=== PATIENT | male | born 1960 | race African-American/Black ===

== ENCOUNTER 2016-08-11 10:44 | Emergency (ER) | payer OTHER ==
[~2016-08-11] VITALS: Ht 177.8 cm; Wt 68.0 kg
[~2016-08-11 10:44] MED LIST: ACETAMINOPHEN-1 EAC1 ORAL; CIPRO500 MG PO; CYCLOBENZAPRINE10 MG ORAL; IBUPROFEN600 MG ORAL; SYNTHROID125 MCG ORAL; TAMSULOSIN HCL0.4 MG ORAL
[2016-08-11] MEDS ORDERED: CYCLOBENZAPRINE10 MG ORAL (12:04)
[2016-08-11] MEDS ORDERED: IBUPROFEN600 MG ORAL (12:04)
[2016-08-11] MEDS ORDERED: TRIAMCINOLONE A15 GM TP (12:04)
[2016-08-11 12:28] VITALS: BP 107/70
--- NOTE | 2016-08-11 14:42 | Emergency Room Report ---
History of Present Illness General Chief Complaint: Pain Source: Patient Present Illness HPI 55-year-old male presents to ED for evaluation. Patient is complaining of left shoulder pain since yesterday. Notes pain and left shoulder and to the left side of ribs radiating to the back. Pain as throbbing, 7/10, worse with moving and raising his shoulder. Denies any chest pain or shortness of breath. Patient is also complaining of a rash to his rectal area for many years now. States that he was previously prescribed zinc cream and states that it never helps. States it is itchy. Denies any pain. Denies any fevers or chills. Denies any sick contacts or recent travel. No other aggravating or relieving factors. Denies any other associated symptom Allergies: Coded Allergies: No Known Allergies (Unverified , 11/19/15) Patient History Past Medical History: psych hx Past Surgical History: georgiana Pertinent Family History: none Social History: Denies: alcohol use, drug use, smoking Immunizations: UTD Reviewed Nursing Documentation: PMH: Agreed, PSxH: Agreed Nursing Documentation-PM Past Medical History: No History, Except For Hx Diabetes: Yes - hypothyroidsm Hx Gastrointestinal Problems: Yes - remove gallbladder due to stone 2014 History Of Psychiatric Problem: Yes - Anxiety Review of Systems All Other Systems: negative except mentioned in HPI Physical Exam Vital Signs Date Time Temp Pulse Resp B/P Pulse Ox O2 Delivery O2 Flow Rate FiO2 08/11/16 10:59 97.9 69 16 106/71 98 Room Air Sp02 EP Interpretation: reviewed, normal General Appearance: no apparent distress, alert, GCS 15, non-toxic Head: normocephalic Eyes: bilateral eye PERRL, bilateral eye normal inspection ENT: normal ENT inspection Neck: normal inspection Respiratory: lungs clear, normal breath sounds, speaking full sentences, other - L psoterior rib pain Cardiovascular #1: regular rate, rhythm, no edema Gastrointestinal: normal bowel sounds, non tender, soft, non-distended, no guarding, no rebound Rectal: deferred Genitourinary: no CVA tenderness Musculoskeletal: normal inspection, tender - L shoudler Neurologic: alert, oriented x3, responsive, motor strength/tone normal, sensory intact, speech normal Psychiatric: normal inspection Skin: other - rash to rectal area. desquamation of skin. no erythema/induration Lymphatic: normal inspection Medical Decision Making Diagnostic Impression: Primary Impression: Dermatitis Additional Impression: Muscle strain ER Course Hospital Course 55-year-old male presents to ED with rash to rectal area, left shoulder pain Differential diagnoses include: Cellulitis, dermatitis, insect bite, abscess Clinical course Patient placed on stretcher. After initial history, physical exam reveals a male in no acute distress. On exam there is reproducible pain to the L shoulder and L rib area. no evidence of trauma. pain is likely muscular EKG was performed and shows no ischemic changes, normal sinus rhythm on rectal exam there is desquamation of skin surronding the rectal area. no induration/erythema Diagnosis - dermatits, muscle strain stable and discharged to home with prescription for motrin, flexeril, triamcinolone. Instructed to followup with PMD. Instructed return to ED if symptoms recur or worsen EKG Diagnostic Results Rate: normal Rhythm: NSR ST Segments: no acute changes ASA given to the pt in ED: No Rhythm Strip Diag. Results EP Interpretation: yes Rhythm: NSR, no PVC's, no ectopy Last Vital Signs Date Time Temp Pulse Resp B/P Pulse Ox O2 Delivery O2 Flow Rate FiO2 08/11/16 12:28 97.7 64 18 107/70 98 Room Air Status: improved Disposition: HOME, SELF-CARE Condition: Stable Scripts Triamcinolone Acetonide (TRIAMCINOLONE ACETONIDE) 15 Gm Cream..g. 15 GM TP BID, #15 GM Prov: KENDALL HAWTHORNE M.D. 08/11/16 Cyclobenzaprine Hcl* (FLEXERIL*) 10 Mg Tablet 10 MG ORAL TID Y for Muscle Spasm, #20 TAB Prov: KENDALL HAWTHORNE M.D. 08/11/16 Ibuprofen* (MOTRIN*) 600 Mg Tablet 600 MG ORAL Q8H Y for For Pain, #30 TAB 0 Refills Prov: KENDALL HAWTHORNE M.D. 08/11/16 Patient Instructions: Muscle Strain, [id number] KENDALL HAWTHORNE M.D. Aug 11, 2016 14:42
== END 2016-08-11 12:28 | disposition home or self-care (01) ==
LOC: EMR 11:20
DX: L30.9 Dermatitis, unspecified (principal); S46.912A Strain of unspecified muscle, fascia and tendon at shoulder and upper arm level, left arm, initial encounter; X58.XXXA Exposure to other specified factors, initial encounter; Y93.9 Activity, unspecified; Y92.9 Unspecified place or not applicable; Z90.49 Acquired absence of other specified parts of digestive tract; Z86.59 Personal history of other mental and behavioral disorders; E11.9 Type 2 diabetes mellitus without complications
CPT/HCPCS: 99284

== ENCOUNTER 2017-04-12 15:15 | Emergency (ER) | payer OTHER ==
[~2017-04-12] VITALS: Ht 180.3 cm; Wt 68.0 kg
[~2017-04-12 15:15] MED LIST changes: +TRIAMCINOLONE A15 GM TP
[2017-04-12 15:30] VITALS: BP 133/85
[2017-04-12] MEDS ORDERED: DEBROX15 M1 BOTH EARS (15:48)
[2017-04-12 16:00] VITALS: BP 133/85
--- NOTE | 2017-04-12 16:29 | Emergency Room Report ---
History of Present Illness General Chief Complaint: General Complaint Source: Patient Present Illness HPI 56-year-old male presents ED for evaluation. States that since Tuesday he's been having difficulty with his hearing. Believes everything feels muffled and/ or hypersensitive. Feels pressure. Denies any pain. Denies any headache or blurry vision. Denies nausea or vomiting. Denies neck stiffness. Denies fevers chills. 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 No other aggravating relieving factors. Denies any other associated symptoms Allergies: Coded Allergies: No Known Allergies (Unverified , 11/19/15) Patient History Past Medical History: none Past Surgical History: georgiana Pertinent Family History: none Social History: Denies: smoking, alcohol use, drug use Immunizations: UTD Reviewed Nursing Documentation: PMH: Agreed, PSxH: Agreed Nursing Documentation-PMH Hx COPD: Yes - 2017 Hx Diabetes: Yes - hypothyroidsm Hx Gastrointestinal Problems: Yes - Cholecystectomy Review of Systems All Other Systems: negative except mentioned in HPI Physical Exam Vital Signs Date Time Temp Pulse Resp B/P (MAP) Pulse Ox O2 Delivery O2 Flow Rate FiO2 04/12/17 15:22 98.2 59 17 118/73 98 Room Air Sp02 EP Interpretation: reviewed, normal General Appearance: no apparent distress, alert, GCS 15, non-toxic Head: normocephalic Eyes: bilateral eye normal inspection, bilateral eye PERRL ENT: hearing grossly normal, normal pharynx, normal voice, other - bilateral ear canal with cerumen impaction. unable to visualize TM Neck: full range of motion, supple, supple/symm/no masses Respiratory: normal inspection Cardiovascular #1: normal inspection Gastrointestinal: normal inspection Rectal: deferred Genitourinary: no CVA tenderness Musculoskeletal: normal inspection Neurologic: alert, oriented x3, responsive, motor strength/tone normal, sensory intact, speech normal Psychiatric: normal inspection Skin: normal inspection Lymphatic: normal inspection Medical Decision Making Diagnostic Impression: Primary Impression: Impacted cerumen Qualified Codes: H61.23 - Impacted cerumen, bilateral ER Course Hospital Course 56-year-old male presents to ED with difficulty hearing, pressure sensation Differential diagnoses include: TM perforation, otitis externa, otitis media, vestibulitis/labryntitis Clinical course Patient placed on stretcher. After initial history, physical exam reveals a middle aged male in no acute distress. There is significant cerumen impaction in both ears. Unable to visualize TM bilaterally I did offer patient options for irrigation of the ear canals. Patient states he would prefer to use ear drops instead Diagnosis - cerumen impaction Stable and discharged to home with Rx Debrox. Followup with PMD/ENT. Return to ED if symptoms recur or worsen Last Vital Signs Date Time Temp Pulse Resp B/P (MAP) Pulse Ox O2 Delivery O2 Flow Rate FiO2 04/12/17 16:00 98.2 57 16 133/85 100 Room Air Status: improved Disposition: HOME, SELF-CARE Condition: Stable Scripts Carbamide Peroxide (DEBROX) 15 Ml Drops 5 DROP BOTH EARS TWICE A DAY for 4 Days, ML 0 Refills Prov: KENDALL HAWTHORNE M.D. 04/12/17 [facility]errals: [facility] ([facility]P) Patient Instructions: Cerumen Impaction KENDALL HAWTHORNE M.D. Apr 12, 2017 16:29
== END 2017-04-12 16:00 | disposition home or self-care (01) ==
LOC: EMR 15:45
DX: H61.23 Impacted cerumen, bilateral (principal); E11.9 Type 2 diabetes mellitus without complications; J44.9 Chronic obstructive pulmonary disease, unspecified
CPT/HCPCS: 99283

== ENCOUNTER 2017-07-12 15:57 | Emergency (ER) | payer OTHER ==
[~2017-07-12] VITALS: Ht 180.3 cm; Wt 68.0 kg
[~2017-07-12 15:57] MED LIST changes: +DEBROX15 M1 BOTH EARS
[2017-07-12 16:50] VITALS: BP 124/70
--- NOTE | 2017-07-12 17:16 | Emergency Room Report ---
History of Present Illness General Chief Complaint: Sore Throat Present Illness HPI 56 Y/O Male Presents to the ED C/O swelling of the left cheek intermittently x 2 weeks. Reports 8/10 in severity discomfort due to swelling but denies pain. Denies fevers, chills, swollen tonsils. Denies pain with swallowing. Patient states that he noticed increased size after eating. Swelling is localized to the left inner cheek. pt. denies recent illness or URI. denies neck pain or stiffness. Denies CP, Palpitations, LOC, AMS, dizziness, Changes in Vision, Sensation, paresthesias, or a sudden severe headache. Allergies: Coded Allergies: No Known Allergies (Unverified , 11/19/15) Patient History Past Medical History: see triage record Past Surgical History: none Pertinent Family History: none Reviewed Nursing Documentation: PMH: Agreed, PSxH: Agreed Nursing Documentation-PMH Hx COPD: Yes - 2017 Hx Diabetes: Yes - hypothyroidsm Hx Gastrointestinal Problems: Yes - Cholecystectomy Review of Systems All Other Systems: negative except mentioned in HPI Physical Exam Vital Signs Date Time Temp Pulse Resp B/P (MAP) Pulse Ox O2 Delivery O2 Flow Rate FiO2 07/12/17 16:02 98.1 58 20 120/72 99 Room Air Sp02 EP Interpretation: reviewed, normal General Appearance: no apparent distress, alert, GCS 15, non-toxic Head: normocephalic, atraumatic Eyes: bilateral eye normal inspection, bilateral eye PERRL ENT: hearing grossly normal, normal pharynx, no angioedema, normal voice, TMs + canals normal, moist mucus membranes, other - Left salivary gland swelling, no erythema , non tender. Neck: full range of motion, no meningismus, no bony tend Respiratory: lungs clear, normal breath sounds, speaking full sentences Cardiovascular #1: regular rate, rhythm Rectal: deferred Genitourinary: normal inspection Musculoskeletal: back normal, gait/station normal, normal range of motion Neurologic: alert, oriented x3, responsive, motor strength/tone normal, sensory intact, speech normal, grossly normal Psychiatric: judgement/insight normal Skin: normal color, no rash, warm/dry, well hydrated Lymphatic: no adenopathy Medical Decision Making PA Attestation Dr. Ruvalcaba is my supervising Physician whom patient management has been discussed with. Diagnostic Impression: Primary Impression: Sialolithiasis, ductal ER Course 56 Y/O Male Presents to the ED C/O swelling of the left cheek intermittently x 2 weeks. Reports 8/10 in severity discomfort due to swelling but denies pain. Denies fevers, chills, swollen tonsils. Denies pain with swallowing. Patient states that he noticed increased size after eating. Swelling is localized to the left inner cheek. pt. denies recent illness or URI. denies neck pain or stiffness. Denies CP, Palpitations, LOC, AMS, dizziness, Changes in Vision, Sensation, paresthesias, or a sudden severe headache. Ddx considered but are not limited to: Sialolith, parotitis, , dental abscess, MOLDER WAX BALL, tonsiliths just to name a few. Vital signs: are WNL, pt. is afebrile H&PE are most consistent with Salivary duct obstruction/stone. Left salivary gland swelling, no erythema , non tender bimanual exam. no LAD, TM and Canal Normal, FROM of neck. ORDERS: none required at this time, the diagnosis is clinical ED INTERVENTIONS: None required at this time. -I do not identify an emergent condition at this time. With current presentation , pt. is stable for close outpatient follow up and conservative treatment. D/ w pt. to return promptly to ED with worsening or new symptoms.- Pt. (and or responsible alliance party) verbalizes' understanding and agreement with proposed treatment plan.proposed treatment plan. DISCHARGE: At this time pt. is stable for d/c to home. Will provide printed patient care instructions, and any necessary prescriptions. Care plan and follow up instructions have been discussed with the patient prior to discharge. Last Vital Signs Date Time Temp Pulse Resp B/P (MAP) Pulse Ox O2 Delivery O2 Flow Rate FiO2 07/12/17 16:50 77 20 124/70 99 Room Air 07/12/17 16:02 98.1 Disposition: HOME, SELF-CARE Condition: Stable Scripts Ibuprofen* (MOTRIN*) 600 Mg Tablet 600 MG ORAL THREE TIMES A DAY, #15 TAB 0 Refills Prov: Dafne Nye P.A. 07/12/17 Cephalexin* (KEFLEX*) 500 Mg Capsule 500 MG ORAL EVERY 12 HOURS for 7 Days, #14 CAP 0 Refills Prov: Dafne Nye P.A. 07/12/17 Patient Instructions: Salivary Stone Additional Instructions: Take medications as directed. Follow up with a Primary Care Provider in 3-5 days, even if your symptoms have resolved. --Please review list of primary care clinics, if you do not already have a primary care provider Return sooner to ED if new symptoms occur, or current symptoms become worse. - Please note that this Emergency Department Report was dictated using [employer] safety engineer technology software, occasionally this can lead to erroneous entry secondary to interpretation by the dictation equipment. Dafne Nye Jul 12, 2017 17:16
[2017-07-12] MEDS ORDERED: CEPHALEXIN500 MG ORAL (17:17)
[2017-07-12] MEDS ORDERED: IBUPROFEN600 MG ORAL (17:17)
[2017-07-12 17:29] VITALS: BP 124/70
== END 2017-07-12 17:40 | disposition home or self-care (01) ==
LOC: EMR 16:45
DX: K11.5 Sialolithiasis (principal); E11.9 Type 2 diabetes mellitus without complications; E03.9 Hypothyroidism, unspecified; J44.9 Chronic obstructive pulmonary disease, unspecified
CPT/HCPCS: 99283

== ENCOUNTER 2018-05-10 15:58 | Emergency (ER) | payer OTHER ==
[~2018-05-10] VITALS: Ht 180.3 cm; Wt 74.8 kg
[~2018-05-10 15:58] MED LIST changes: +CEPHALEXIN500 MG ORAL
--- NOTE | 2018-05-10 16:19 | Emergency Room Report ---
History of Present Illness General Chief Complaint: Eye Problems Source: Patient Present Illness HPI 57-year-old male patient presents ER complaining of left eye pain for the past day. Reports symptoms began yesterday, reports pain symptoms wax and wane in intensity. Denies fever, chest pain, shortness of breath. Denies vision changes. Denies photophobia or phonophobia. Denies eye crusting or itchiness. Denies curtain coming down over field of vision, denies andrade in visual field. denies history of glaucoma, reports family history of glaucoma. denies foreign body sensation. Denies wearing contact lenses, denies wearing glasses normally, states he is beginning to glasses for reading. denies history diabetes. reports history of sinus problems in the past, reports nasal congestion during this time. denies headache. Allergies: Coded Allergies: No Known Allergies (Unverified , 11/19/15) Patient History Past Medical History: see triage record Reviewed Nursing Documentation: PMH: Agreed; PSxH: Agreed Nursing Documentation-PMH Past Medical History: No History, Except For Hx COPD: Yes - 2016 Hx Diabetes: Yes - hypothyroidsm Hx Gastrointestinal Problems: Yes - Cholecystectomy Review of Systems All Other Systems: negative except mentioned in HPI Physical Exam Vital Signs Date Time Temp Pulse Resp B/P (MAP) Pulse Ox O2 Delivery O2 Flow Rate FiO2 05/10/18 16:04 98.6 68 20 118/75 95 Room Air Sp02 EP Interpretation: reviewed, normal General Appearance: well appearing, no apparent distress, alert, GCS 15, non- toxic Head: normocephalic, atraumatic Eyes: bilateral eye normal inspection, bilateral eye PERRL, bilateral eye EOMI , bilateral eye other - no rest ring, negative Siedel sign, no fluorescein uptake, no dendritic lesions, no conjunctival injection ENT: hearing grossly normal, normal pharynx, no angioedema, normal voice, TMs + canals normal, uvula midline, moist mucus membranes Neck: full range of motion Respiratory: lungs clear, normal breath sounds, no rhonchi, no respiratory distress, no accessory muscle use, no wheezing, speaking full sentences Cardiovascular #1: regular rate, rhythm, no edema Cardiovascular #2: 2+ radial (R), 2+ radial (L) Musculoskeletal: back normal, digits/nails normal, gait/station normal, normal range of motion, non-tender Neurologic: alert, oriented x3, responsive, motor strength/tone normal, sensory intact Psychiatric: mood/affect normal Skin: no rash Medical Decision Making PA Attestation Dr. Otto is my supervising Physician whom patient management has been discussed with. Diagnostic Impression: Primary Impression: Left eye pain ER Course Pt. presents to the ED c/o left eye pain. Ddx considered but are not limited to allergic conjunctivitis, viral conjunctivitis, bacterial conjunctivitis, periorbital cellulitis, URI, sinusitis , keratitis, glaucoma, cluster headache. No reduction in VA, no cilliary flush, no photophobia, no FB sensation, no corneal opacity, low suspicion for keratitis, iritis. No FIGUEROA, no vomiting, no fixed pupil, no reduction of VA, no ciliary flush, low suspicion for angle closure glaucoma. no surrounding erythema or edema, no pain with movement, low suspicion for preseptal cellulitis, does not require antibiotics at this time, does not require imaging at this time. See nurses note for visual acuity. Vital signs: are WNL, pt. is afebrile ER COURSE: physical exam shows no conjunctival injection, no crusting, low suspicion for conjunctivitis. fluorescein uptake shows no abrasion, no rust ring, negative Joy sign, no dendritic lesions intraocular pressure left eye averaged over 3 tries is 17 mmHg, no fixed pupil, low suspicion for glaucoma Will provide patient with Opcon-A eyedrops, does not believe patient requires antibiotic coverage at this time. Pain symptoms likely related to allergy symptoms. Will provide patient with Claritin D for sinus symptoms. F/u with ophthalmology. F/u with sr. director. May return to school after 24 hours of treatment completed. DISCHARGE: Rx provided for Claritin-D Rx provided for Naphcon-A At this time pt. is stable for d/c to home. Patient is resting comfortably, in no acute distress, nontoxic appearing, talking and smilng without difficulty. Will provide printed patient care instructions, and any necessary prescriptions. Patient instructed to follow up with chuck wagon cook and discuss further follow up with ophthamology and sr. director. Care plan and follow up instructions have been discussed with the patient prior to discharge. Patient questions asked and answered. Patient reports understanding and agreement to treatment plan. ER precautions given. Patient instructed to return to ER immediately for any new or worsening of symptoms including but not limited to vision loss, fever, changes in vision. - Please note that this Emergency Department Report was dictated using [employer] pitcher technology software, occasionally this can lead to erroneous entry secondary to interpretation by the dictation equipment. Last Vital Signs Date Time Temp Pulse Resp B/P (MAP) Pulse Ox O2 Delivery O2 Flow Rate FiO2 05/10/18 16:04 98.6 68 20 118/75 95 Room Air Status: improved Disposition: HOME, SELF-CARE Condition: Stable Scripts Loratadine/Pseudoephedrine (CLARITIN-D 12 HOUR TABLET) 1 Each Tab.er.12h 1 TAB ORAL EVERY 12 HOURS, #24 TAB Prov: Marky Steel 05/10/18 Naphazoline Hcl/Pheniramine (OPCON-A EYE DROPS) 15 Ml Drops 15 ML OP BID, #15 ML Prov: Marky Steel 05/10/18 Patient Instructions: Sinusitis, Adult, [id number], Viral Conjunctivitis Additional Instructions: Followup with primary care provider in 1-2 days Following with sr. director and supervisor slitting and shipping. If unable to be seen by them, follow-up with [facility]. Take medications as directed. Patient questions asked and answered. ER precautions given, patient instructed to return to ER immediately for any new or worsening of symptoms. Marky Steel May 10, 2018 16:19
[2018-05-10] MEDS ORDERED: Fluorescein Strips LEFT EYE ONE (16:30)
[2018-05-10] MEDS ORDERED: Tetracaine 0.5% Opth 4ml Soln LEFT EYE ONE (16:30)
[2018-05-10] MEDS ORDERED: CLARITIN-D 121 EAC1 ORAL (17:11)
[2018-05-10] MEDS ORDERED: OPCON-A EYE DRO15 ML OP (17:11)
[2018-05-10 17:15] VITALS: BP_SYST 115; BP_SYST 121; BP_DIAS 74; BP_DIAS 79
[2018-05-10 17:16] VITALS: BP 115/74
== END 2018-05-10 17:20 | disposition home or self-care (01) ==
LOC: EMR 17:11
DX: H57.12 Ocular pain, left eye (principal); J44.9 Chronic obstructive pulmonary disease, unspecified; E11.9 Type 2 diabetes mellitus without complications; E03.9 Hypothyroidism, unspecified; Z90.49 Acquired absence of other specified parts of digestive tract
CPT/HCPCS: 99282

== ENCOUNTER 2018-06-23 14:16 | Emergency (ER) | payer OTHER ==
[~2018-06-23] VITALS: Ht 177.8 cm; Wt 72.6 kg
[~2018-06-23 14:16] MED LIST changes: +CLARITIN-D 121 EAC1 ORAL; +OPCON-A EYE DRO15 ML OP
[2018-06-23] MEDS ORDERED: Acetaminophen 500mg (ES) tab PO ONE (15:00)
[2018-06-23] MEDS ORDERED: LIDODERM700 M1 TOPIC (15:20)
[2018-06-23] MEDS ORDERED: TYLENOL EXTRA500 MG ORAL (15:20)
--- NOTE | 2018-06-23 15:31 | Diagnostic Imaging Report ---
Indication: Back pain Comparison: None Findings: 2 views of the thoracic spine were obtained. Bones are osteopenic. There is generalized loss of height of several thoracic vertebral bodies throughout the thoracic spine. Superimposed degenerative endplate spurs noted. No soft tissue swelling identified. IMPRESSION: Mild multilevel age indeterminate compression fracture deformities of thoracic vertebra. Generalized osteopenia. Superimposed degenerative changes.
[2018-06-23 15:40] VITALS: BP 118/60
--- NOTE | 2018-06-23 15:52 | Emergency Room Report ---
History of Present Illness General Chief Complaint: Back Pain-No Injury Source: Patient, Medical Record Present Illness HPI 57-year-old male presents ED for evaluation. Walked in the ED complaining of back pain. Notes pain to his mid upper back. Has been there for several months now. States that his PMD prescribed him topical medications without significant relief. He asked his PMD to x-ray his upper back but they did not. Pain is throbbing, 8 out of 10, nonradiating. Denies chest pain. Denies shortness of breath. Denies any recent injury. No other aggravating relieving factors. Denies any other associated symptoms Allergies: Coded Allergies: No Known Allergies (Unverified , 06/23/18) Patient History Past Surgical History: ge[place]iana Pertinent Family History: none Social History: Denies: smoking, alcohol use, drug use Immunizations: UTD Reviewed Nursing Documentation: PMH: Agreed; PSxH: Agreed Nursing Documentation-PMH Hx COPD: Yes - 2017 Hx Diabetes: No - hypothyroidsm Hx Gastrointestinal Problems: Yes - Cholecystectomy Review of Systems All Other Systems: negative except mentioned in HPI Physical Exam Vital Signs Date Time Temp Pulse Resp B/P (MAP) Pulse Ox O2 Delivery O2 Flow Rate FiO2 06/23/18 14:23 99.0 66 18 112/58 100 Room Air Sp02 EP Interpretation: reviewed, normal General Appearance: no apparent distress, alert, GCS 15, non-toxic Head: normocephalic Eyes: bilateral eye normal inspection, bilateral eye PERRL ENT: normal ENT inspection Neck: normal inspection Respiratory: normal inspection Cardiovascular #1: normal inspection Gastrointestinal: normal inspection Rectal: deferred Genitourinary: no CVA tenderness, vertebral tenderness - T spine Musculoskeletal: normal inspection Neurologic: alert, oriented x3, responsive, motor strength/tone normal, sensory intact, speech normal Psychiatric: normal inspection Skin: normal inspection Lymphatic: normal inspection Medical Decision Making Diagnostic Impression: Primary Impression: Back pain Qualified Codes: M54.6 - Pain in thoracic spine; G89.29 - Other chronic pain ER Course Hospital Course 57-year-old M presents to ED complaining of upper back pain for months Differential diagnoses include: Fracture, dislocation, sprain, contusion Clinical course Patient placed on stretcher. After initial history and physical, I ordered pain medications and Xrays of T spine Xrays show multilevel degenerrative changes, some comrpession deformities. Discussed findings with patient. We'll discharged home with pain medications. Patient states he'll follow-up with his PMD Diagnosis - back pain Stable and discharged to home with prescription for tylenol, lidoderm. weight bear as tolerated. Followup with PMD. Return to ED if symptoms recur or worsen Other X-Ray Diagnostic Results Other X-Ray Diagnostic Results : X-Ray ordered: T spine # of Views/Limited Vs Complete: 2 View Indication: Pain EP Interpretation: Yes Interpretation: no dislocation, no soft tissue swelling Impression: Other - Mild multilevel age indeterminate compression fracture deformities of thoracic Electronically Signed by: Electronically signed by Warner Henriquez MD Last Vital Signs Date Time Temp Pulse Resp B/P (MAP) Pulse Ox O2 Delivery O2 Flow Rate FiO2 06/23/18 14:23 99.0 66 18 112/58 100 Room Air Status: improved Disposition: HOME, SELF-CARE Condition: Stable Scripts Lidocaine (Lidoderm) 1 Each Adh..patch 1 PATCH TOPIC DAILY, #7 PATCH 0 Refills Patch(es) may remain in place for up to 12 hours in any 24-hour period. Prov: Warner Henriquez MD 06/23/18 Acetaminophen* (TYLENOL EXTRA STRENGTH*) 500 Mg Tablet 500 MG ORAL Q8H PRN for Prn Headache/Temp > 101, #30 TAB 0 Refills Prov: Warner Henriquez MD 06/23/18 Patient Instructions: Back Pain, Adult Warner Henriquez MD Jun 23, 2018 15:52
== END 2018-06-23 15:40 | disposition home or self-care (01) ==
LOC: EMR 15:01
DX: M54.6 Pain in thoracic spine (principal); M85.88 Other specified disorders of bone density and structure, other site; J44.9 Chronic obstructive pulmonary disease, unspecified; Z90.49 Acquired absence of other specified parts of digestive tract
CPT/HCPCS: 72070; 99283

== ENCOUNTER 2019-08-02 16:43 | Emergency (ER) | payer OTHER ==
[~2019-08-02] VITALS: Ht 180.3 cm; Wt 68.0 kg
[~2019-08-02 16:43] MED LIST changes: +LIDODERM700 M1 TOPIC; +TYLENOL EXTRA500 MG ORAL
--- NOTE | 2019-08-02 17:20 | Emergency Room Report ---
History of Present Illness General Chief Complaint: Pain Source: Patient Present Illness HPI Disclaimer: Please note that this report is being documented using [employer] technology. This can lead to erroneous entry secondary to incorrect interpretation by the dictating instrument. HPI: 58-year-old male presents for evaluation of left heel pain. Symptoms present for 2 days. Cannot recall specific injury though notes significant pain while walking. 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 No prior history of foot injury or pain. He notes pain mostly in the left heel that radiates up to the forefoot. Denies pain over the dorsal aspect of the foot or in the ankle or knee. Has not taken any medications prior to arrival. Denies limitation to range of motion. Pain is relieved by rest. Allergies: Coded Allergies: No Known Allergies (Unverified , 06/23/18) Nursing Documentation-PMH Hx COPD: Yes - 2017 Hx Diabetes: No - hypothyroidsm Hx Gastrointestinal Problems: Yes - Cholecystectomy Review of Systems All Other Systems: negative except mentioned in HPI Physical Exam Vital Signs Date Time Temp Pulse Resp B/P (MAP) Pulse Ox O2 Delivery O2 Flow Rate FiO2 08/02/19 16:57 98.2 60 15 110/74 (86) 98 Room Air General: Awake and alert, no acute distress HEENT: NC/AT. EOMI. Resp: Normal work of breathing Skin: Intact. No abrasions, laceration or rash over the exposed skin MSK: Normal tone and bulk. Moving all extremities. No obvious deformity. No tenderness palpation over the posterior aspects of the medial or lateral malleolus. No midfoot tenderness. Moving all digits on the left foot. Able to plantarflex and dorsiflex, invert and caitie the foot without difficulty. No obvious edema. There is tenderness palpation over the calcaneus without deformity or edema. No tenderness over the plantar aspect of the foot over the distal portions. Neuro: Awake and alert. Mentating appropriately Medical Decision Making Diagnostic Impression: Primary Impression: Plantar fasciitis of left foot ER Course 58-year-old male presents for evaluation of left heel pain. Differential includes was not limited to hairline fracture, occult injury, plantar fasciitis , strain, sprain. X-ray was obtained to rule out fracture and does not find any evidence of fracture, dislocation or other pathology. Believe is likely plantar fasciitis given his symptoms and presentation today. Will treat with Bernadette ice, rest and stretching exercises. And follow-up with his PMD. He understands and agrees with this treatment plan will be discharged. Other X-Ray Diagnostic Results Other X-Ray Diagnostic Results : X-Ray ordered: Left foot # of Views/Limited Vs Complete: 3 View Indication: Pain EP Interpretation: Yes Interpretation: no dislocation, no soft tissue swelling, no fractures Impression: No acute disease Electronically Signed by: Electronically signed by Dr. Linwood Nicole Last Vital Signs Date Time Temp Pulse Resp B/P (MAP) Pulse Ox O2 Delivery O2 Flow Rate FiO2 08/02/19 16:57 98.2 60 15 110/74 (86) 98 Room Air Reevaluation Impression No evidence of bone spur or acute bony injury appreciated on x-rays. Patient's history is most consistent with a plantar fasciitis and will discharge on Naprosyn and provide stretching exercises. He will be referred to orthopedic surgery clinic as well and back to his PMD. Discussed reasons to return to the emergency department. He understands and agrees with treatment plan. Disposition: HOME, SELF-CARE Condition: Stable Scripts Naproxen* (NAPROXEN*) 500 Mg Tablet 500 MG ORAL TWICE A WEEK, #60 TAB 0 Refills Prov: Linwood Nicole MD 08/02/19 Linwood Nicole MD Aug 02, 2019 17:20
[2019-08-02 17:31] VITALS: BP 110/74
--- NOTE | 2019-08-02 17:32 | NUR ---
ED Nurse Note:pt. came with left foot pain no injury reported
[2019-08-02] MEDS ORDERED: NAPROXEN500 M2 ORAL (17:44)
[2019-08-02 17:49] VITALS: BP 110/74
--- NOTE | 2019-08-03 09:22 | Diagnostic Imaging Report ---
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 No acute fractures. No dislocations. Joint spaces are preserved Impression: Negative
== END 2019-08-02 17:49 | disposition home or self-care (01) ==
LOC: EMR 17:37
DX: M72.2 Plantar fascial fibromatosis (principal); J44.9 Chronic obstructive pulmonary disease, unspecified; E03.9 Hypothyroidism, unspecified; Z90.49 Acquired absence of other specified parts of digestive tract
CPT/HCPCS: 73630; Z7502; 99283

== ENCOUNTER 2020-05-25 16:11 | Emergency (ER) | payer OTHER ==
[~2020-05-25] VITALS: Ht 180.3 cm; Wt 68.0 kg
[~2020-05-25 16:11] MED LIST changes: +NAPROXEN500 M2 ORAL
[2020-05-25 16:32] VITALS: BP 129/81
--- NOTE | 2020-05-25 17:57 | Emergency Room Report ---
History of Present Illness General Chief Complaint: Earache Source: Patient Present Illness HPI 59-year-old male presents to the emergency department complaining of 6 out of 10 severity progressive left ear pain x1 week. Patient reports today he did notice some swelling in the area just in front of the ear. Patient reports he has no changes in hearing. Patient states he attempted to use Q-tips with no relief. He denies fevers or chills. He denies notable discharge. He reports pain is exacerbated upon palpation of the left ear. He also reports is exacerbated if he tries to sleep on that side. He denies erythema or warmth. Denies headache, dizziness or visual changes. Denies neck pain or sore throat. 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 COVID-19 Screening: Negative COVID-19 COVID-19 Testing Source: few months ago Patient History Past Medical History: see triage record Past Surgical History: none Pertinent Family History: none Reviewed Nursing Documentation: PMH: Agreed; PSxH: Agreed Nursing Documentation-PMH Past Medical History: No History, Except For Hx COPD: Yes Hx Diabetes: No - hypothyroidsm Hx Gastrointestinal Problems: Yes - Cholecystectomy, gastritis Review of Systems All Other Systems: negative except mentioned in HPI Physical Exam Vital Signs Date Time Temp Pulse Resp B/P (MAP) Pulse Ox O2 Delivery O2 Flow Rate FiO2 05/25/20 16:15 97.9 79 20 129/81 (97) 97 Room Air Sp02 EP Interpretation: reviewed, normal General Appearance: no apparent distress, alert, GCS 15, non-toxic Head: normocephalic, atraumatic Eyes: bilateral eye normal inspection, bilateral eye PERRL ENT: hearing grossly normal, normal voice, other - left ear with external ear tenderness and some preauricular swelling. There is excessive cerumen noted as well as canal swelling/maceration. unable to visualize the TM. No evidence of mastoiditis Neck: full range of motion Respiratory: lungs clear, normal breath sounds, speaking full sentences Cardiovascular #1: regular rate, rhythm Musculoskeletal: normal range of motion, gait/station normal, non-tender Neurologic: alert, motor strength/tone normal, oriented x3, sensory intact, responsive, speech normal Psychiatric: judgement/insight normal Skin: no rash, normal color Medical Decision Making PA Attestation Dr. Ruvalcaba is my supervising Physician whom patient management has been discussed with. Diagnostic Impression: Primary Impression: Otitis externa Qualified Codes: H60.502 - Unspecified acute noninfective otitis externa, left ear Additional Impression: Excessive cerumen in left ear canal ER Course 59-year-old male presents to the emergency department complaining of 6 out of 10 severity progressive left ear pain x1 week. Patient reports today he did notice some swelling in the area just in front of the ear. Patient reports he has no changes in hearing. Patient states he attempted to use Q-tips with no relief. He denies fevers or chills. He denies notable discharge. He reports pain is exacerbated upon palpation of the left ear. He also reports is exacerbated if he tries to sleep on that side. He denies erythema or warmth. Denies headache, dizziness or visual changes. Denies neck pain or sore throat. No other agg ravating or relieving factors at this time Ddx considered but are not limited to OM, OE, mastoiditis, TM perforation, FB, shingles just to name a few. Vital signs: are WNL, pt. is afebrile H&PE are most consistent with otitis Externa of the left ear with external ear tenderness and some preauricular swelling. There is excessive cerumen noted as well as canal swelling/maceration. unable to visualize the TM. ORDERS: none required at this time, the diagnosis is clinical ED INTERVENTIONS: None required at this time. DISCHARGE: At this time pt. is stable for d/c to home. With PO ABX. Will provide printed patient care instructions, and any necessary prescriptions. Care plan and follow up instructions have been discussed with the patient prior to disch arge. Last Vital Signs Date Time Temp Pulse Resp B/P (MAP) Pulse Ox O2 Delivery O2 Flow Rate FiO2 05/25/20 16:32 97.9 20 129/81 97 Room Air 05/25/20 16:15 79 Disposition: HOME, SELF-CARE Condition: Stable Scripts Carbamide Peroxide (DEBROX) 15 Ml Drops 10 DROP LEFT EAR TWICE A DAY for 4 Days, #15 ML 0 Refills Prov: Dafne Nye 05/25/20 Ciprofloxacin Hcl/Dexameth (CIPRODEX OTIC SUSPENSION) 7.5 Ml Drops.susp 4 DROP LEFT EAR TID for 7 Days, #7.5 ML Prov: Dafne Nye 05/25/20 Referrals: NON PHYSICIAN (PCP) April [facility]. [facility] Patient Instructions: Otitis Externa, [id number] Additional Instructions: Take medications as directed. Follow up with a Primary Care Provider in 3-5 days, even if your symptoms have resolved. --Please review list of primary care clinics, if you do not already have a primary care provider Return sooner to ED if new symptoms occur, or current symptoms become worse. - Please note that this Emergency Department Report was dictated using [employer] and merchandising representative technology software, occasionally this can lead to erroneous entry secondary to interpretation by the dictation equipment. Dafne Nye May 25, 2020 17:57
[2020-05-25] MEDS ORDERED: CIPRODEX OTIC7.5 M1 LEFT EAR (17:59)
[2020-05-25] MEDS ORDERED: DEBROX15 M1 LEFT EAR (17:59)
[2020-05-25 18:29] VITALS: BP 130/82
== END 2020-05-25 18:29 | disposition home or self-care (01) ==
LOC: EMR 17:12
DX: H60.92 Unspecified otitis externa, left ear (principal); H61.22 Impacted cerumen, left ear
CPT/HCPCS: 99282